=== PATIENT | male | born 1990 | race Two or more races ===

== ENCOUNTER 2023-12-23 14:42 | Emergency (ER) | payer MEDICAID ==
[~2023-12-23] VITALS: Ht 175.3 cm; Wt 90.9 kg
[2023-12-23 14:49] VITALS: TEMP 98.2
[2023-12-23 15:12] VITALS: BP 136/82; PULSE 96; RESP 16
[2023-12-23] MEDS: PERTUSS(ACELL),DIPH,TET/PF 0.5 ML SYRINGE [ADULT] IM. ONE (15:25)
[2023-12-23] MEDS: CEPHALEXIN MONOHYDRATE 500 MG CAPSULE PO ONE (15:26)
[2023-12-23] MEDS: POVIDONE-IODINE 10% 120 ML SOLUTION TP ONE (15:26)
[2023-12-23] MEDS: IBUPROFEN 600 MG TABLET PO ONE (15:26)
[2023-12-23] MEDS: HYDROCODONE/ACETAMINOPHEN 5-325 MG TABLET PO ONE (15:26)
[2023-12-23] MEDS ORDERED: IBUP-1554 PO (15:51)
[2023-12-23] MEDS ORDERED: CEPH-558 PO (15:51)
[2023-12-23] MEDS ORDERED: ACET-2080 PO (15:51)
== END 2023-12-23 17:09 | disposition home or self-care (01) ==
LOC: EMS 14:49
DX: S60.455A Superficial foreign body of left ring finger, initial encounter (principal); W45.0XXA Nail entering through skin, initial encounter; Y93.89 Activity, other specified; Y92.89 Other specified places as the place of occurrence of the external cause; Y99.8 Other external cause status
CPT/HCPCS: 90471; 90715; 99284

== ENCOUNTER 2023-12-25 07:37 | Emergency (ER) | payer MEDICAID ==
[~2023-12-25] VITALS: Ht 167.6 cm; Wt 86.4 kg
[~2023-12-25 07:37] MED LIST: ACET-2080 PO; CEPH-558 PO; IBUP-1554 PO
[2023-12-25 07:44] VITALS: BP 104/58; PULSE 60; RESP 16; TEMP 97.4
== END 2023-12-25 10:49 | disposition left against medical advice (07) ==
LOC: EMS 07:37
DX: Z53.21 Procedure and treatment not carried out due to patient leaving prior to being seen by health care provider (principal)